=== PATIENT | male | born 1955 | race Caucasian/White ===

== ENCOUNTER 2016-08-24 17:23 | Emergency (ER) | payer MEDICARE, MEDICAID ==
[~2016-08-24] VITALS: Ht 172.7 cm; Wt 84.3 kg
[2016-08-24 17:43] VITALS: BP 132/79; PULSE 67; RESP 16; TEMP 98; O2SAT 96
[2016-08-24] MEDS ORDERED: ANTI DEPRESSENT (17:54)
[2016-08-24] MEDS ORDERED: LOVA10TA PO (17:54)
[2016-08-24] MEDS ORDERED: SLEETAB2 (17:54)
[2016-08-24] MEDS ORDERED: TETANUS/DIPHTHERIA TOXOID ADULT 0.5 ML VIAL IM ONE (18:00)
[2016-08-24] MEDS ORDERED: IBUP800T23 PO (18:08)
[2016-08-24] MEDS ORDERED: CEPH-460 PO (18:08)
--- NOTE | 2016-08-24 18:09 | PD ---
HPI Chief Complaint: Laceration/Skin Injury Time Seen by Provider: 18:07 Travel History International Travel<30 days: No Contact w/Intl Traveler<30days: No Traveled to known affect area: No History of Present Illness HPI Patient is a 61-year-old male who presented to emergency department for evaluation of lacerations to his right forearm. Patient states the glass window fell on his arm at noon. He is unsure his last tetanus vaccination. He has no complaints of pain. Patient states he went to [facility] first and waited for 2 hours and decided to come here. PFSH Past Medical History Depression: Yes High Cholesterol: Yes Diminished Hearing: No Medical other: Yes (PTSD) Tetanus Vaccination: Unknown Past Surgical History Other Surgery: Yes (BACK AND BILAT. SX.) Social History Alcohol Use: No Tobacco Use: Yes (1 PPD) Allergies-Medications (Allergen,Severity, Reaction): Coded Allergies: No Known Allergies (Verified , 08/24/16) Reported Meds & Prescriptions Reported Meds & Active Scripts Active Ibuprofen 800 Mg Tab 800 Mg PO Q8H PRN Keflex (Cephalexin) 500 Mg Cap 500 Mg PO Q12H 5 Days Reported Sleep Medicine (Homeopathic Products) 1 Tab Tab [Anti-Depressent] Lovastatin 10 Mg Tab 10 Mg PO DAILY Review of Systems Except as stated in HPI: all other systems reviewed are Neg Skin: Positive Other (laceration 2) Physical Exam Narrative GENERAL: Well-nourished, well-developed patient. SKIN: Warm and dry. 1 cm and 0.5 cm lacerations to the right forearm on the volar aspect, superficial, base of wound is well visualized. HEAD: Normocephalic. EYES: No scleral icterus. No injection or drainage. NECK: Supple, trachea midline. No JVD or lymphadenopathy. CARDIOVASCULAR: Regular rate and rhythm without murmurs, gallops, or rubs. RESPIRATORY: Breath sounds equal bilaterally. No accessory muscle use. GASTROINTESTINAL: Abdomen soft, non-tender, nondistended. MUSCULOSKELETAL: No cyanosis, or edema. 5/5 muscle strength in bilateral upper extremities. Motor and sensation is intact. Positive radial pulse, brisk is increasing capillary refill. BACK: Nontender without obvious deformity. No CVA tenderness. Data Data Last Documented VS Vital Signs Date Time Temp Pulse Resp B/P Pulse Ox O2 Delivery O2 Flow Rate FiO2 08/24/16 17:43 98.0 67 16 132/79 96 Orders Tetanus/Diphtheria Tox Adult (Tetanus/Di (08/24/16 18:00) MDM Medical Decision Making Medical Screen Exam Complete: Yes Emergency Medical Condition: Yes Interpretation(s) Vital Signs Date Time Temp Pulse Resp B/P Pulse Ox O2 Delivery O2 Flow Rate FiO2 08/24/16 17:43 98.0 67 16 132/79 96 Differential Diagnosis Patient versus laceration versus retained foreign body versus tendon injury versus other Narrative Course Patient is a 61-year-old male who presents emergency department for evaluation of laceration to his right forearm that he sustained approximately noon today. Patient's tetanus vaccination was updated emergency department today, please see procedure report for laceration repair. Patient tolerated procedure well, he was educated on signs and symptoms of infection. He was educated on wound care. He was encouraged return to emergency department in 7-10 days of stitches removed. Patient was advised to keep stitches clean and dry, cover with topical antibiotic and nonocclusive dressing. He was advised to return to the emergency department for any new or worsening symptoms. Patient verbalized understanding of instructions. Patient stable for discharge. Procedures Procedure Narrative LACERATION LOCATION: Right forearm LENGTH: 1 cm and 0.5 cm NUMBER OF STITCHES/BEREKET: 4 stitches total REPAIR: The area of the laceration was prepped with Betadine and sterilely draped. The laceration was infiltrated with percent lidocaine. The wound was copiously irrigated and explored without evidence of foreign body, tendon injury or neurovascular injury. The wound was closed using 4-0 Prolene. This was a 1 layer repair. A sterile dressing was applied. The patient was advised to keep the dressing clean and dry. Patient tolerated the procedure well. Diagnosis Primary Impression: Laceration of forearm Qualified Code: S51.811A - Laceration of forearm, right, initial encounter Referrals: Primary Care Physician Patient Instructions: Care For Your Stitches (ED), General Instructions, Laceration (ED), Stitches Removal (DC) Additional Instructions: Stitches will need to be removed in 7-10 days. Keep stitches clean and dry, cover with nonocclusive dressing and topical antibiotic ointment Take medications as directed Return to emergency department for any new or worsening symptoms Follow-up with your primary doctor Med/Other Pt SpecificInfo: Prescription(s) given Scripts Ibuprofen 800 Mg [id number] Mg PO Q8H PRN (Pain/Inflammation) #60 TAB Ref 0 Prov:Mariah Watkins 08/24/16 Cephalexin (Keflex)500 Mg [id number] Mg PO Q12H 5 Days Ref 0 Prov:Mariah Watkins 08/24/16 Disposition: 01 DISCHARGE HOME Condition: Stable Mariah Watkins Aug 24, 2016 18:09
== END 2016-08-24 18:19 | disposition home or self-care (01) ==
LOC: PHEFT 17:23
DX: S51.811A Laceration without foreign body of right forearm, initial encounter (principal); Z23 Encounter for immunization; E78.00 Pure hypercholesterolemia, unspecified; F43.10 Post-traumatic stress disorder, unspecified; F17.210 Nicotine dependence, cigarettes, uncomplicated
CPT/HCPCS: 12001; 90471; 90714